=== PATIENT | female | born 1955 ===

== ENCOUNTER 2017-02-21 12:37 | Emergency (ER) | payer SELFPAY ==
[2017-02-21] MEDS ORDERED: Sodium Chloride 0.9% 1,000 ML IV STA (13:15)
--- NOTE | 2017-02-21 13:33 | ED PDOC ---
HPI: Headache Time Seen by Provider: 02/21/17 13:10 Chief Complaint (Nursing): Headache Chief Complaint (Provider): Headache History Per: Patient History/Exam Limitations: no limitations Onset/Duration Of Symptoms: Days (x5) Current Symptoms Are (Timing): Still Present Additional Complaint(s): Clif Felipe is a 61 year old female with a past medical history of Diabetes who presents to the ED complaining of pain in the back of her head x5 days. Patient states she woke up with the pain present. Also states pain is worsened upon standing from a laying or sitting position and upon head movement. Denies vomiting or photophobia. States she takes Metformin for Diabetes. PMD: Provider TBD Past Medical History Reviewed: Historical Data, Nursing Documentation, Vital Signs Vital Signs: Last Vital Signs Temp 97.0 F L 02/21/17 12:42 Pulse 89 02/21/17 12:42 Resp 16 02/21/17 12:42 BP 126/84 02/21/17 12:42 Pulse Ox 97 02/21/17 12:42 - Medical History PMH: Diabetes, Hyperlipidemia, Hypothyroidism - Family History Family History: States: Unknown Family Hx - Allergies Allergies/Adverse Reactions: Allergies Allergy/AdvReac Type Severity Reaction Status Date / Time No Known Allergies Allergy Verified 02/21/17 12:42 Review of Systems ROS Statement: Except As Marked, All Systems Reviewed And Found Negative Eyes: Negative for: Other (Photophobia) Gastrointestinal: Negative for: Vomiting Neurological: Positive for: Headache Physical Exam - Reviewed Nursing Documentation Reviewed: Yes Vital Signs Reviewed: Yes - Physical Exam Appears: Positive for: Well, Non-toxic, No Acute Distress Head Exam: Positive for: ATRAUMATIC, NORMOCEPHALIC. Negative for: NORMAL INSPECTION (Skin tags noted on back of head. ) Skin: Positive for: Normal Color. Negative for: Rash Eye Exam: Positive for: Normal appearance Neurologic/Psych: Positive for: Alert, Oriented, Other (Finger to nose intact, 5 /5 strength, no loss of facial sensation) - Laboratory Results Result Diagrams: 02/21/17 13:44 02/21/17 13:44 - ECG O2 Sat by Pulse Oximetry: 97 (RA) Pulse Ox Interpretation: Normal Medical Decision Making Medical Decision Making: Time: 13:14 Initial Impression: Non-specific headache Plan: --CT Head w/o contrast --CMP --CBC w/ differential --AccuType IL28B --Sodium Chloride 0.9% 1,000 ml IV --Reevaluation Time: 14:14 CT Head Findings: HEMORRHAGE: No intracranial hemorrhage. BRAIN: Normal peters-white matter differentiation and density are appreciated throughout the cerebrum and cerebellum with the brainstem appearing unremarkable as well. There is no mass effect. There is no suspicious extra-axial fluid collection in the midline brain anatomy appears diffusely unremarkable. VENTRICLES: Unremarkable. No hydrocephalus. CALVARIUM: Unremarkable. PARANASAL SINUSES: Unremarkable as visualized. No significant inflammatory changes. MASTOID AIR CELLS: Unremarkable as visualized. No inflammatory changes. OTHER FINDINGS: None. IMPRESSION: Unremarkable unenhanced CT of the Head Time: 14:25 --Lactic Acid Time: 14:35 --Upon rediscussion with patient, revealed she was on a Prednisone taper 2 weeks ago for rheumatoid arthritis. Time: 14:56 --Reglan 10 mg IVP Time: 15:00 --Discussed findings with . Ordering CTA head/neck --CTA Head and Neck Bundle --Toradol 30 mg IV Time: 17:31 CTA Head/Neck FINDINGS: INTERNAL CEREBRAL ARTERIES: Unremarkable. The skull base, petrous, cavernous and supraclinoid segments are bilaterally widely patent. ANTERIOR CEREBRAL ARTERIES: Unremarkable. A1 and A2 segments are widely patent. Smaller distal branches unremarkable, as visualized. MIDDLE CEREBRAL ARTERIES: Unremarkable. M1 and M2 segments are widely patent. Perisylvian branches grossly symmetric. POSTERIOR CIRCULATION: Basilar Artery: Unremarkable. Distal Vertebral Arteries: Unremarkable. Posterior Cerebral Arteries: Unremarkable. Posterior Inferior Cerebellar Arteries: Unremarkable. NECK CTA RESULTS: Common carotid arteries: The bilateral common carotid appear widely patent from their origins to their bifurcations with no significant stenosis appreciated. The right common carotid artery is rather ectatic due to a large right thyroid nodule displacing it laterally. No evidence to suggest common carotid artery dissection. Internal carotid arteries: No significant stenosis is appreciated throughout the cervical internal carotid artery segments bilaterally and there is no evidence of dissection either. Vertebral arteries: The bilateral vertebral arteries appear normal in caliber from their origins to their junction with the basilar artery. Vertebrobasilar system appears left dominant. No significant stenosis or definite pattern of dissection. Incidentally, the bilateral subclavian arteries are widely patent as well as the brachiocephalic artery. ANEURYSM/ VASCULAR MALFORMATIONS: None. OTHER FINDINGS: A large right thyroid lobe nodule essentially replaces nearly the entire right thyroid lobe measuring 4.5 x 3.1 x 4.1 cm with potential central necrosis or cystic change. Consider tissue diagnosis of this finding. IMPRESSION: 1. Unremarkable intracranial central arterial circulation. 2. Widely patent bilateral common and internal carotid arteries although the right common origin markedly ectatic due to a large right thyroid lobe nodule. 3. No arteriovascular malformation or aneurysm identified. 4. 4.5 cm right thyroid lobe mass essentially replaces the right lobe and is irregular in appearance overall. Consider tissue diagnosis to exclude potential malignancy. Time: 17:45 --Upon provider evaluation patient is medically stable, and requires no further treatment in the ED at this time. Counseling was provided and all questions were answered regarding diagnosis and need for follow up with PMD. There is agreement to discharge plan. Return if symptoms persist or worsen. Scribe Attestation: Documented by Chava Bonilla, acting as a scribe for Ayaan Victor PA-C Provider Scribe Attestation: All medical record entries made by the Scribe were at my direction and personally dictated by me. I have reviewed the chart and agree that the record accurately reflects my personal performance of the history, physical exam, medical decision making, and the department course for this patient. I have also personally directed, reviewed, and agree with the discharge instructions and disposition. Disposition - Clinical Impression Clinical Impression: Headache - Patient ED Disposition Is Patient to be Admitted: No Counseled Patient/Family Regarding: Studies Performed, Diagnosis, Need For Followup - Disposition Disposition: Routine/Home Disposition Time: 17:45 Condition: FAIR Additional Instructions: SIGA CON BECK MEDICO PARA CHEQUAR PRUEBA DE OSMEL SIGA CO BECK SPECIALISTA PARA CHEQUAR THYROID. Instructions: Acute Headache (DC) Forms: [employer] (Guamanian) Print Language: LATVIAN
[2017-02-21 13:52] LABS: BASO # 0.1 K/uL (0.0-0.2); BASO % 0.8 % (0.0-2.0); EOS # 0.1 K/uL (0.0-0.7); EOS % 0.8 % (0.0-4.0); HEMATOCRIT 43.5 % (34.0-47.0); LYMPH # 2.5 K/uL (1.0-4.3); LYMPH % 15.2 % (20.0-40.0); MEAN CORPUSCULAR HEMOGLOBIN 29.5 pg (27.0-31.0); MEAN CORPUSCULAR HGB CONC 32.5 g/dL (33.0-37.0); MEAN PLATELET VOLUME 8.4 fl (7.2-11.7); MONO # 0.9 K/uL (0.0-0.8); MONO % 5.6 % (0.0-10.0); NEUT # 12.7 K/uL (1.8-7.0); NEUT % 77.6 % (50.0-75.0); RED CELL DISTRIBUTION WIDTH 13.6 % (11.5-14.5); WHITE BLOOD COUNT 16.4 K/uL (4.8-10.8)
[2017-02-21 14:14] LABS: ALB/GLOB RATIO 1.2 (1.0-2.1); ALKALINE PHOSPHATASE 127 U/L (38-126); ALT/SGPT 38 U/L (9-52); AST/SGOT 26 U/L (14-36); BILIRUBIN,TOTAL 0.4 mg/dl (0.2-1.3); BLOOD UREA NITROGEN 14 mg/dl (7-17); CALCIUM 9.1 mg/dL (8.4-10.2); CARBON DIOXIDE 28 mmol/L (22-30); CHLORIDE 104 mmol/L (98-107); GFR AFRICAN-AMERICAN > 60; GLUCOSE,RANDOM 123 mg/dL (65-105); POTASSIUM 4.2 MMOL/L (3.6-5.0); SODIUM 142 mmol/l (132-148); TOTAL PROTEIN 7.9 G/DL (6.3-8.2)
--- NOTE | 2017-02-21 14:16 | CT ---
PROCEDURE: CT HEAD WITHOUT CONTRAST. HISTORY: HEADACHE COMPARISON: None available. TECHNIQUE: Axial computed tomography images were obtained through the head/brain without intravenous contrast. Radiation dose: Total exam DLP = 766.25 mGy-cm. This CT exam was performed using one or more of the following dose reduction techniques: Automated exposure control, adjustment of the mA and/or kV according to patient size, and/or use of iterative reconstruction technique. FINDINGS: HEMORRHAGE: No intracranial hemorrhage. BRAIN: Normal peters-white matter differentiation and density are appreciated throughout the cerebrum and cerebellum with the brainstem appearing unremarkable as well. There is no mass effect. There is no suspicious extra-axial fluid collection in the midline brain anatomy appears diffusely unremarkable. VENTRICLES: Unremarkable. No hydrocephalus. CALVARIUM: Unremarkable. PARANASAL SINUSES: Unremarkable as visualized. No significant inflammatory changes. MASTOID AIR CELLS: Unremarkable as visualized. No inflammatory changes. OTHER FINDINGS: None. IMPRESSION: Unremarkable unenhanced CT of the Head.
[2017-02-21] MEDS ORDERED: Iodixanol 320 MG/ML 100 ML BOTTLE IV ONE (15:59)
[2017-02-21] MEDS ORDERED: Sodium Chloride 0.9% 50 ML IV ONE (15:59)
[2017-02-21 16:57] LABS: RBC URINE < 1 /hpf (0-3); URINE BILIRUBIN NEGATIVE (NEGATIVE); URINE BLOOD NEGATIVE (NEGATIVE); URINE COLOR COLORLESS (YELLOW); URINE GLUCOSE (UA) NEG (Normal); URINE KETONE NEGATIVE (NEGATIVE); URINE LEUKOCYTE ESTERASE NEG Leu/uL (Negative); URINE PROTEIN NEGATIVE (NEGATIVE); URINE UROBILINOGEN 0.2-1.0 mg/dL (0.2-1.0); WBC URINE < 1 /hpf (0-5)
--- NOTE | 2017-02-21 17:33 | CT ---
PROCEDURE: CT Angiography of the Brain. HISTORY: headache COMPARISON: None available. TECHNIQUE: CT angiography of the intracranial arteries was performed. Coronal and sagittal maximum intensity projection reformated images were generated. This CT exam was performed using one or more of the following dose reduction techniques: Automated exposure control, adjustment of the mA and/or kV according to patient size, and/or use of iterative reconstruction technique. FINDINGS: INTERNAL CEREBRAL ARTERIES: Unremarkable. The skull base, petrous, cavernous and supraclinoid segments are bilaterally widely patent. ANTERIOR CEREBRAL ARTERIES: Unremarkable. A1 and A2 segments are widely patent. Smaller distal branches unremarkable, as visualized. MIDDLE CEREBRAL ARTERIES: Unremarkable. M1 and M2 segments are widely patent. Perisylvian branches grossly symmetric. POSTERIOR CIRCULATION: Basilar Artery: Unremarkable. Distal Vertebral Arteries: Unremarkable. Posterior Cerebral Arteries: Unremarkable. Posterior Inferior Cerebellar Arteries: Unremarkable. NECK CTA RESULTS: Common carotid arteries: The bilateral common carotid appear widely patent from their origins to their bifurcations with no significant stenosis appreciated. The right common carotid artery is rather ectatic due to a large right thyroid nodule displacing it laterally. No evidence to suggest common carotid artery dissection. Internal carotid arteries: No significant stenosis is appreciated throughout the cervical internal carotid artery segments bilaterally and there is no evidence of dissection either. Vertebral arteries: The bilateral vertebral arteries appear normal in caliber from their origins to their junction with the basilar artery. Vertebrobasilar system appears left dominant. No significant stenosis or definite pattern of dissection. Incidentally, the bilateral subclavian arteries are widely patent as well as the brachiocephalic artery. ANEURYSM/ VASCULAR MALFORMATIONS: None. OTHER FINDINGS: A large right thyroid lobe nodule essentially replaces nearly the entire right thyroid lobe measuring 4.5 x 3.1 x 4.1 cm with potential central necrosis or cystic change. Consider tissue diagnosis of this finding. IMPRESSION: 1. Unremarkable intracranial central arterial circulation. 2. Widely patent bilateral common and internal carotid arteries although the right common origin markedly ectatic due to a large right thyroid lobe nodule. 3. No arteriovascular malformation or aneurysm identified. 4. 4.5 cm right thyroid lobe mass essentially replaces the right lobe and is irregular in appearance overall. Consider tissue diagnosis to exclude potential malignancy.
[2017-02-21 18:46] VITALS: BP 130/70; PULSE 70; RESP 18; TEMP 98; O2SAT 18
== END 2017-02-21 18:49 | disposition home or self-care (01) ==
LOC: H.ER 12:37
DX: R51 Headache (principal); E11.9 Type 2 diabetes mellitus without complications; E03.9 Hypothyroidism, unspecified; E04.1 Nontoxic single thyroid nodule; E78.5 Hyperlipidemia, unspecified; M06.9 Rheumatoid arthritis, unspecified
CPT/HCPCS: 70450; 70496; 70498; 80053; 81003; 82948; 83605; 85025; 87040; 87086; 87804; 96374; 99285; J1885; J2765; J7040; Q9967

== ENCOUNTER 2017-06-02 06:39 | Emergency (ER) | payer SELFPAY ==
--- NOTE | 2017-06-02 07:17 | ED PDOC ---
HPI: Abdomen Time Seen by Provider: 06/02/17 07:04 History Per: Patient Onset/Duration Of Symptoms: Days (3) Current Symptoms Are (Timing): Still Present Severity: Moderate Location Of Pain/Discomfort: Other Quality Of Discomfort: Unable To Describe Associated Symptoms: Nausea, Constipation. denies: Vomiting Exacerbating Factors: None Alleviating Factors: None Additional Complaint(s): Constipation x 3 days. No BM x 3 days. Passing gas. Nausea but no vomiting. Past Medical History Vital Signs: Last Vital Signs Temp 98.5 F 06/02/17 07:25 Pulse 110 H 06/02/17 07:25 Resp 16 06/02/17 07:25 BP 128/84 06/02/17 07:25 Pulse Ox 96 06/02/17 07:25 - Medical History PMH: Diabetes, Hyperlipidemia, Hypothyroidism, Rheumatoid Arthritis - Family History Family History: States: Unknown Family Hx - Home Medications Home Medications: Ambulatory Orders Medication Instructions Recorded Polyethylene Glycol 3350 [Miralax] 17 gm PO HS #100 ml 06/02/17 - Allergies Allergies/Adverse Reactions: Allergies Allergy/AdvReac Type Severity Reaction Status Date / Time No Known Allergies Allergy Verified 02/21/17 12:42 Review of Systems Constitutional: Negative for: Fever Gastrointestinal: Positive for: Nausea, Abdominal Pain, Constipation Physical Exam - Physical Exam Appears: Positive for: Non-toxic, No Acute Distress Skin: Positive for: Normal Color, Warm, DRY Gastrointestinal/Abdominal: Positive for: Bowel Sounds, Soft. Negative for: Tenderness, Mass Rectal: Positive for: Other (Hard stool in vault) - Progress Re-evaluation Time: 09:02 Condition: Improved (Large BM Feels better. Wishes to go home) Disposition - Clinical Impression Clinical Impression: Constipation - Patient ED Disposition Is Patient to be Admitted: No Counseled Patient/Family Regarding: Studies Performed, Diagnosis, Need For Followup, Rx Given - Disposition Referrals: [facility] [Outside] Disposition: Routine/Home Disposition Time: 09:03 Condition: FAIR Prescriptions: Polyethylene Glycol 3350 [Miralax] 17 gm PO HS #100 ml Instructions: Constipation, Adult (DC) Print Language: GREEK
[2017-06-02 07:29] VITALS: BP 128/84; PULSE 110; RESP 16; TEMP 98.5
[2017-06-02 09:25] VITALS: O2SAT 98
--- NOTE | 2017-06-02 09:34 | RAD ---
HISTORY: r/o obstruction COMPARISON: No prior. FINDINGS: The lungs are well inflated and clear. BOWEL: There are multiple small air-fluid levels in the abdomen. No free intraperitoneal air. No bowel dilatation. BONES: Normal. OTHER FINDINGS: None. IMPRESSION: Small air-fluid levels could be related to gastroenteritis. No definite evidence of bowel obstruction. Follow-up is advised.
== END 2017-06-02 09:28 | disposition home or self-care (01) ==
LOC: H.ER 06:39
DX: K59.00 Constipation, unspecified (principal); E03.9 Hypothyroidism, unspecified; E11.9 Type 2 diabetes mellitus without complications; E78.5 Hyperlipidemia, unspecified; M06.9 Rheumatoid arthritis, unspecified